=== PATIENT | female | born 1975 | race Caucasian/White ===

== ENCOUNTER 2020-11-24 13:56 | Inpatient (IN) | payer BC, OTHER ==
[~2020-11-24 13:56] MED LIST: BACTROBAN OINT22 GM EXT; NORCO 5-325 TA1 EACH PO
[2020-11-24 14:56] LABS: RED BLOOD COUNT 4.98 M/UL (4.00-5.10); WHITE BLOOD COUNT 5.1 K/UL (4.5-11.0)
[2020-11-24 15:44] LABS: BUN/CREATININE RATIO 15 (0-10)
[2020-11-24] MEDS ORDERED: LEXAPRO20 MG PO (22:09)
[2020-11-24] MEDS ORDERED: LOPRESSOR 25 MG25 MG PO (22:09)
[2020-11-24] MEDS ORDERED: ROPINIROLE HCL2 MG PO (22:10)
[2020-11-24] MEDS ORDERED: SINEQUAN CAP 1010 MG PO (22:10)
[2020-11-24] MEDS ORDERED: ASPIRIN CHEWABL81 MG PO (22:10)
[2020-11-24] MEDS ORDERED: ATORVASTATIN CA40 MG PO (22:11)
[2020-11-24] MEDS ORDERED: CLARITIN10 M2 PO (22:12)
[2020-11-24] MEDS ORDERED: ZESTRIL10 MG PO (22:12)
[2020-11-24] MEDS ORDERED: FLONASE 0.05% N16 GM (22:12)
[2020-11-24] MEDS ORDERED: NEURONTIN800 MG PO (22:13)
[2020-11-24] MEDS ORDERED: BUPROPION XL150 MG PO (22:13)
[2020-11-24] MEDS ORDERED: ULTRAM50 MG PO (22:14)
[2020-11-24] MEDS ORDERED: NORVASC5 MG PO (22:14)
[2020-11-25 04:59] LABS: HEMOGLOBIN 12.2 gm/dl (12.3-15.3); RED BLOOD COUNT 4.53 M/UL (4.00-5.10); WHITE BLOOD COUNT 5.9 K/UL (4.5-11.0)
[2020-11-25 05:39] LABS: BUN/CREATININE RATIO 17 (0-10)
[2020-11-25 11:16] LABS: BUN/CREATININE RATIO 13 (0-10)
[2020-11-25 18:48] LABS: BUN/CREATININE RATIO 20 (0-10)
[2020-11-26 04:54] LABS: RED BLOOD COUNT 4.07 M/UL (4.00-5.10); WHITE BLOOD COUNT 9.3 K/UL (4.5-11.0)
[2020-11-26 05:12] LABS: BUN/CREATININE RATIO 26 (0-10)
[2020-11-26] MEDS ORDERED: AZITHROMYCIN250 MG PO (14:54)
[2020-11-26] MEDS ORDERED: HUMALOG 10100 UNITS/ SC (14:58)
== END 2020-11-26 15:57 | disposition home or self-care (01) | DRG 177 ==
LOC: ER1 13:56 → ZEROF 18:22 → CDU 18:22 → ZEROF 18:22 → CDU 11-25 08:22 → CCU 11-25 12:02
PROVIDERS: Emergency Medicine; Internal Medicine; ADMIT Internal Medicine
PROC: 8E0ZXY6 Isolation (ICD-10-PCS; principal; 2020-11-24)
PROC: XW033E5 Introduction of Remdesivir Anti-infective into Peripheral Vein, Percutaneous Approach, New Technology Group 5 (ICD-10-PCS; 2020-11-24)
DX: U07.1 COVID-19 (principal); J12.82 Pneumonia due to coronavirus disease 2019; J96.01 Acute respiratory failure with hypoxia; E11.65 Type 2 diabetes mellitus with hyperglycemia; I25.2 Old myocardial infarction; Z90.710 Acquired absence of both cervix and uterus; Z82.49 Family history of ischemic heart disease and other diseases of the circulatory system; Z79.82 Long term (current) use of aspirin; Z79.899 Other long term (current) drug therapy
CPT/HCPCS: 36415; 36600; 71045; 80048; 80053; 81001; 82009; 82550; 82553; 82803; 82962; 83605; 83735; 83874; 83880; 84484; 85025; 85610; 85730; 87040; 87081; 87880; 90471; 93005; 94760; 96365; 96366; 96367; 96372; 96375; 96376; 99285; G0378; J0456; J0696; J1100; J1650; J2405; J7030; U0002